=== PATIENT | male | born 1980 | race Two or more races ===

== ENCOUNTER 2017-07-31 11:46 | Emergency (ER) | payer MEDICAID ==
[~2017-07-31] VITALS: Ht 165.1 cm; Wt 92.5 kg
[2017-07-31 11:50] VITALS: BP 149/106
[2017-07-31] MEDS ORDERED: LIDOCAINE 1% INJ 50 ML MDV IJ STA (12:06)
[2017-07-31] MEDS ORDERED: LIDOCAINE 2% 20 ML MDV ONE (12:12)
[2017-07-31] MEDS ORDERED: TDAP [DIPH/PERTUSSIS/TET] 0.5 ML VIAL IM ONE ×2 (12:14→12:30)
[2017-07-31] MEDS ORDERED: CEFAZOLIN 1 GM VIAL IM ONE (13:30)
[2017-07-31] MEDS ORDERED: CEFAZOLIN 0 GM ONE (13:45)
[2017-07-31] MEDS ORDERED: CEPHALEXIN MONOHYDRATE 500 MG CAPSULE PO STA (13:45)
[2017-07-31] MEDS ORDERED: CEPHALEXIN MONOHYDRATE 500 MG CAPSULE PO ONE (13:50)
== END 2017-07-31 14:55 | disposition home or self-care (01) ==
LOC: ER 11:51
DX: S61.210A Laceration without foreign body of right index finger without damage to nail, initial encounter (principal); W31.89XA Contact with other specified machinery, initial encounter; Y93.89 Activity, other specified; Y92.89 Other specified places as the place of occurrence of the external cause; Y99.0 Civilian activity done for income or pay
CPT/HCPCS: 12002; 73120; 90471; 90715; 99284; A4606; A6402 ×2; J3490; Z7610; J0690